=== PATIENT | male | born 1990 | race Caucasian/White ===

== ENCOUNTER 2022-12-03 08:34 | Emergency (ER) | payer SELFPAY ==
[2022-12-03] MEDS ORDERED: Acetaminophen 500 MG TAB ONE (08:56)
== END 2022-12-03 09:26 | disposition home or self-care (01) ==
LOC: MADERS 08:34
DX: S09.90XA Unspecified injury of head, initial encounter (principal); S00.03XA Contusion of scalp, initial encounter; F17.220 Nicotine dependence, chewing tobacco, uncomplicated; W19.XXXA Unspecified fall, initial encounter
CPT/HCPCS: 70450